=== PATIENT | female | born 1975 | race Caucasian/White ===

== ENCOUNTER 2023-11-03 07:28 | Outpatient (OUT) | payer OTHER, SELFPAY ==
--- NOTE | 2023-11-03 07:31 | MM_ITS ---
Patient Name: BHAVANA DEE MR#: [id number] : 1975 Exam Date: 11/03/2023 Ordering Doctor: DR Dayami Ann M.D. RADIOLOGY REPORT PROCEDURE: MM TOMOSYNTHESIS SCREENING BI COMPARISON: MG MAMM SCREEN 3D KELY CAD, 07/17/2022. MG MAMM SCREEN 3D KELY CAD, 06/24/2021. MG MAMM SCREEN KELY W CAD, 06/19/2020. MG MAMM KELY SCRN W CAD DIG, 05/07/2015. INDICATIONS: Screening Calculator Name NCI Breast Cancer Risk Assessment Tool 5 Year Breast Cancer Risk 1.30% Lifetime Breast Cancer Risk 12.30% Personal Breast Cancer No Personal Ovarian Cancer No Treatments None Family Cancers None LOCATION: [facility] BREAST COMPOSITION: The breasts are heterogeneously dense,which may obscure small masses. FINDINGS: DIAGNOSTIC CATEGORY 1--NEGATIVE. RIGHT BREAST: No significant suspicious finding. No significant change has occurred. LEFT BREAST: No significant suspicious finding. No significant change has occurred. RECOMMENDATIONS: ROUTINE MAMMOGRAM AND CLINICAL EVALUATION IN 12 MONTHS. PLEASE NOTE: A NORMAL MAMMOGRAM DOES NOT EXCLUDE THE POSSIBILITY OF BREAST CANCER. A CLINICALLY SUSPICIOUS PALPABLE LUMP SHOULD BE BIOPSIED. Dictated by: Patricio Aleman M.D. on 11/04/2023 at 14:26 Approved by: Patricio Aleman M.D. on 11/04/2023 at 14:29
== END 2023-11-03 07:29 | disposition home or self-care (01) ==
LOC: MAMMO 07:28
PROVIDERS: PCP Family Medicine; Visit Provider Family Medicine
DX: Z12.31 Encounter for screening mammogram for malignant neoplasm of breast (principal)
CPT/HCPCS: 77063; 77067

== ENCOUNTER 2024-07-23 12:38 | Emergency (ER) | payer OTHER, SELFPAY ==
[2024-07-23 12:46] VITALS: BP 120/71; PULSE 80; TEMP 37.1; O2SAT 97; BMI 28.7
--- OUTSIDE RECORDS SUMMARY | 2024-07-23 13:14 | XMS_ITS | CCD ---
Author Organization [facility] Care Team Providers Care Senior Benefits Manager Name Role Phone Tena Maxwell Unavailable DOMINIQUE ., DR MCCOY Admitting Unavailabl e KARASIK ., DR MCCOY Attending Unavailclifford JOSHI, DR DAYAMI Franks Primary Care Unavailable KARASIK ., DR MCCOY Consulting Unavailabl e ALLAN, DR PATRICIO Peacock Consulting Unavailable KARASIK ., DR MCCOY Admitting Unavailabl e KARASIK ., DR MCCOY Attending Ben JOSHI, DR DAYAMI Franks Primary Care Unavailable KARASIK ., DR MCCOY Consulting Unavailabl e ALLAN, DR PATRICIO Peacock Consulting Unavailable KARASIK ., DR MCCOY Admitting Unavailabl e KARASIK ., DR MCCOY Attending Unavailclifford JOSHI, DR DAYAMI Franks Primary Care Unavailable KARASIK ., DR MCCOY Consulting Dayami Bernal Unavailable THOM KIRAN Attending Unavailable MD Dayami Joshi Primary Care Provider DO Katie Haque Attending Provider [phone] Katie Haque Attending Unavailable Katie Haque Admitting Unavailable Dayami Joshi Primary Care Unavailable Allergies Allergy Classification Reported Allergen(s) Allergy Type Date of Onset Reaction(s) Facility Penicillins (antibiotic) (1 source) Penicillins Drug Allergy 11-29-19 Comment:Hives, eyes buldge, diarrhea, throat swelling, N&V [facility] Sulfonamides (antibiotic) (1 source) Sulfonamides (Antibiotic) Drug Allergy 12-01-19 heart racing and hives [facility] (1 source) Penicillin V Drug Allergy diarrhea [facility] Other (1 source) sulfaSALAzine Drug Allergy heart racing [facility] Other (2 sources) Penicillin Drug Allergy diarrhea [facility] Other (2 sources) Sulfacetamide Drug Allergy Unknown [facility] Other (2 sources) Substance with penicillin structure and antibacterial mechanism of action (substance) Drug allergy Comment:Hives, eyes buldge, diarrhea, throat swelling, N&V [facility] Other (2 sources) Substance with sulfonamide structure and antibacterial mechanism of action (substance) Drug allergy heart racing [facility] Other (2 sources) patient allergy list reviewed by nurse or physicia Propensity to adverse reactions 09-07-19 Comment:Done [facility] Other (2 sources) Allergies Reconciled Propensity to adverse reactions Unknown [facility] Other (2 sources) Penicillins; Translations: [Penicillins] Allergy to substance 12-13-19 Comment:Hives, eyes buldge, diarrhea, throat swelling, N&V [facility] (2 sources) Sulfonamides (Antibiotic); Translations: [Sulfa (Sulfonamide Antibiotics)] Allergy to substance 12-13-19 heart racing and [facility] Medications Current Medications Medication Drug Class(es) Dates Sig (Normalized) Sig (Original) Antiarthritic Combination No.2 (Glucosamine-Chondroi tin) 900 mg tablet (1 source) Start: 12-13-2023 take 1 tablet by mouth once daily Antiarthritic Combination No.2 (Glucosamine-Chondro itin) 900 mg tablet Active MG PO Daily December 13, 2023 12:00am cholecalciferol 0.05 mg oral capsule (1 source) Vitamin D Start: 12-13-2023 take 50 ug by mouth once daily Cholecalciferol (Vitamin D3) Active 50 MCG PO Daily December 13, 2023 12:00am Digestive Enzymes (1 source) Start: 12-13-2023 take 1 capsule by mouth once daily at mealtime Digestive Enzymes Active 1 CAP PO Daily December 13, 2023 12:00am administer with food; swallow whole; do not crush/chew/dissolve/ break/cut lactobacillus acidophilus [id number] unt oral capsule (1 source) Start: 12-13-2023 take 10 capsules by mouth once daily Lactobacillus Acidophilus (Probacap) 10 billion cell capsule Active 100 MMU CELLS PO Daily December 13, 2023 12:00am levothyroxine sodium 0.088 mg oral tablet (7 sources) l-Thyroxine Start: 11-29-2023 Levothyroxine Active 1 TAB PO Daily November 29, 2023 12:00am FreeTextSig: TAKE 1 TABLET DAILY Orally Once a day; Note: Source Status: Refill; Refills: 3; Qty: 90 Tablet; Provider: Marissa Franks Start: 07-07-2021 take 1 tablet by shilpi once daily Levothyroxine Sodium 88MCG Levothyroxine Sodium 88MCG, 1 (one) Tablet daily # 0, 07/07/2021, No Refill. Active Oral daily for 0 *Pick strength-form from [employer] for eRX* Jul, Active Levothyroxine So dium 88 MCG TAKE 1 TABLET DAILY Orally Once a day for 90 days Active Synthroid Active metroNIDAZOLE (2 sources) Nitroimidazole Antimicrobial Start: 12-01-2023 Metronidazole Active 1 APPLIC TOPICAL Daily 60 December 01, 2023 12:00am Multivitamins (2 sources) Start: 11-25-2021 Multivitamins Multivitamins( Oral 1 daily ) Active -Hx Entry Oral daily for 0 *Reorder from [employer] for eRx and Interaction Alerts* Oct, Active Probiotic-10 (2 sources) Start: 11-25-2021 Probiotic-10 Probiotic-10( Oral 1 Daily ) Active -Hx Entry Oral Daily for 0 *Pick strength-form from [employer] for eRX* Oct, Active Problems Active Problems Problem Classification Problem Date Documented Date Episodic/Chronic Blindness and vision defects (2 sources) Visual disturbance; Translations: [Unspecified visual disturbance] Episodic Conditions associated with dizziness or vertigo (2 sources) Dizziness and giddiness; Translations: [Dizziness and giddiness] Episodic Headache; including migraine (2 sources) Menstrual status migrainosus; Translations: [Menstrual migraine, not intractable, with status migrainosus] Chronic Immunizations and screening for infectious disease (8 sources) Contact with and (suspected) exposure to other viral communicable diseases; Translations: [Encounter for screening for human papillomavirus (HPV)] Onset: 03-05-2021 Resolved: 03-05-2021 Episodic Malaise and fatigue (2 sources) Fatigue; Translations: [Other fatigue] Episodic Menopausal disorders (2 sources) Menopause present; Translations: [Menopausal and female climacteric states] Chronic Nutritional deficiencies (2 sources) Vitamin D deficiency; Translations: [Vitamin D deficiency, unspecified] Chronic Other aftercare (2 sources) History and physical examination, follow-up; Translations: [Encounter for follow-up examination after completed treatment for conditions other than malignant neoplasm] Episodic Other connective tissue disease (2 sources) Neuralgia; Translations: [Neuralgia and neuritis, unspecified] Episodic Other connective tissue disease (2 sources) Spasm; Translations: [Other muscle spasm] Episodic Other female genital disorders (2 sources) Mucous polyp of cervix; Translations: [Polyp of cervix uteri] Episodic Other inflammatory condition of skin (3 sources) Perioral dermatitis; Translations: [Perioral dermatitis] 12-01-2023 Chronic Other inflammatory condition of skin (1 source) Perioral dermatitis; Translations: [Rosacea] 12-01-2023 Chronic Other nutritional; endocrine; and metabolic disorders (2 sources) Obese class I; Translations: [Body mass index (BMI) 32.0-32.9, adult] Chronic Other screening for suspected conditions (not mental disorders or infectious disease) (13 sources) Encounter for screening mammogram for malignant neoplasm of breast; Translations: [Encounter for screening for malignant neoplasm of cervix] Onset: 07-07-2022 Episodic Other upper respiratory infections (5 sources) Acute upper respiratory infection, unspecified; Translations: [Acute maxillary sinusitis] Onset: 09-06-2018 Resolved: 03-05-2021 Episodic Spondylosis; intervertebral disc disorders; other back problems (4 sources) Thoracic and lumbosacral neuritis; Translations: [Thoracic or lumbosacral neuritis or radiculitis, unspecified] Onset: 07-18-2018 Episodic Thyroid disorders (2 sources) Hypothyroidism; Translations: [Hypothyroidism, unspecified] Chronic Past or Other Problems Problem Classification Problem Date Documented Da te Episodic/Chronic Cancer of cervix (2 sources) Atypical squamous cells of undetermined significance on cervical Papanicolaou smear; Translations: [Atypical squamous cells of undetermined significance on cytologic smear of cervix (ASC-US)] Resolved: 06-04-2017 Episodic Menstrual disorders (2 sources) Irregular periods; Translations: [Irregular menstruation, unspecified] Onset: 07-18-2018 Resolved: 06-13-2019 Chronic Nonspecific chest pain (2 sources) Chest pain; Translations: [Other chest pain] Resolved: 11-20-2021 Episodic Other female genital disorders (2 sources) Abnormal uterine bleeding; Translations: [Abnormal uterine and vaginal bleeding, unspecified] Resolved: 06-19-2020 Chronic Other female genital disorders (4 sources) Polyp of cervix uteri; Translations: [POLYP OF CERVIX UTERI] Onset: 12-04-2021 Episodic Other nutritional; endocrine; and metabolic disorders (2 sources) Body mass index 25-29 - overweight; Translations: [Body mass index (BMI) 27.0-27.9, adult] Resolved: 06-17-2020 Episodic Other upper respiratory infections (2 sources) Chronic sinusitis; Translations: [Chronic sinusitis, unspecified] Resolved: 06-17-2020 Chronic Results Test Name Value Interpretation Reference Range Facil ity HCG ( test) IA.rapi d Ql (U)Ordered By: Katie Haque on 12-22-2023 HCG ( test) Ql (U) Negative [facility] HCG,Urineon 12-22-2023 Beta HCG ( test) Ql (U) Negative Normal [facility] Comment on above: Result Comment: PERFORMED BY: [place] [address] PATHOLOGIST CUP MACHINE OPERATOR LORI VEGA M.D. Performed By: #### U HCG #### [address] Shahzad 12-22-2023 L Specimen: [id number] Received: 12/22/23 Status: LINCOLN Johnson Num: [id number] Spec Type: Surgical Subm Dr: Katie Haque DO Tissues: A Colon Biopsy (DESC POLYPS) Procedures: HE/2, Gross/Micro L4 Age/ Patient Sex Location Account Attending Physician Bhavana Dee 48/F [id number] Katie Haque DO SPEC NUM: [id number] RECD: 12/22/23 STATUS: LINCOLN ALEX NUM: [id number] NAY: 12/22/23 DR: Katie Haque DO ENTERED: 12/22/[address]: SPEC TYPE: Surgical DEPT: S ORDERED: HE/2, Gross/Micro L4 ORDERED: HE/2, Gross/Micro L4 Pathological Diagnosis Colon, descending polyp (endoscopic polypectomy/biopsy): Fragments of tubular adenoma Clinical Information Screening Gross Description Received in formalin labeled with the patient's name, date of and descending polyp are 2 gottlieb polypoid tissue fragments measuring 0.4 x 0.4 x 0.1 cm and 0.3 x 0.3 x 0.1 cm, entirely submitted in A1. CPT Codes 41726 ---- ---- Specimen: [id number] Received: 12/22/23 Status: LINCOLN Alex Num: [id number] Spec Type: Surgical Subm Dr: Katie Haque DO Tissues: A Colon Biopsy (DESC POLYPS) Procedures: HE/2, Gross/Micro L4 ---- Patient: Bhavana Dee [id number] (Continued) ---- Signed (signature on file) Karan Ziegler Jr., MD 12/23/23 1540 Normal [facility] MG MAMM SCREEN 3D KELY CADon 07-17-2022 MG MAMM SCREEN 3D KELY CAD Patient: BHAVANA DEE Exam Date: 07/17/2022 : 1975 Gender:F Ordering : DR DARIUS FOX . Admission #: [id number] Family : Order #: [id number] CLICK HERE TO VIEW EXAM RADIOLOGY REPORT PROCEDURE: MAMMOGRAM SCREENING 3D BILATERAL CAD COMPARISON: MG MAMM SCREEN 3D KELY CAD, 06/24/2021. MG MAMM SCREEN KELY W CAD, 06/19/2020. MG MAMM SCREEN KELY W CAD, 06/12/2019. MG MAMM KELY SCRN W CAD DIG, 05/07/2015. INDICATIONS: Screening mammography Calculator Name NCI Breast Cancer Risk Assessment Tool 5 Year Breast Cancer Risk 1.20% Lifetime Breast Cancer Risk 12.70% Personal Breast Cancer No Personal Ovarian Cancer No Treatments None Family Cancers None LOCATION: [facility] BREAST COMPOSITION: Heterogeneously dense,which may obscure small masses. FINDINGS: DIAGNOSTIC CATEGORY 1--NEGATIVE. RIGHT BREAST: No significant suspicious finding. No significant change has occurred. LEFT BREAST: No significant suspicious finding. No significant change has occurred. RECOMMENDATIONS: ROUTINE MAMMOGRAM AND CLINICAL EVALUATION IN 12 MONTHS. PLEASE NOTE: A NORMAL MAMMOGRAM DOES NOT EXCLUDE THE POSSIBILITY OF BREAST CANCER. A CLINICALLY SUSPICIOUS PALPABLE LUMP SHOULD BE BIOPSIED. Dictated by: Patricio Aleman M.D. on 07/17/2022 at 11:48 Approved by: Patricio Aleman M.D. on 07/17/2022 at 11:51 Normal [facility] PAP ACOG PANEL 2: 30 to 65on 07-17-2022 . . Normal [facility] Comment on above: Result Comment: Performed at: WB Performed By: #### [id number] #### [facility] [address] [address] [address] Laurel Sheldon Age Gdln ACOG Testing 30-65 Normal [facility] Comment on above: Performed By: #### [id number] #### [facility] [address] [address] [address] Laurel Sheldon DIAGNOSIS: Comment Normal [facility] Comment on above: Result Comment: NEGATIVE FOR INTRAEPITHE LIAL LESION OR MALIGNANCY. CELLULAR CHANGES ASSOCIATED WITH INFLAMMATION ARE PRESENT. THIS SPECIMEN WAS RESCREENED PART OF OUR SURVEY CHIEF PROGRAM. Performed at: WB Performed By: #### [id number] #### [facility] [address] [address] [address] Laurel Sheldon HPV Aptima Positive Abnormal Negative [facility] Comment on above: Result Comment: This nucleic acid amplif ication test detects fourteen high-risk HPV types (16,18,31,33,35,39,45,51,52,56,58,59,66,68) without differentiation. Performed at: =G Performed By: #### [id number] #### [facility] [address] [place] [address] Dr. Laurel Sheldon HPV Genotype 16 Negative Normal Negative [facility] Comment on above: Performed By: #### [id number] #### [facility] [address] [place] [address] Dr. Laurel Sheldon HPV Genotype 18,45 Negative Normal Negative [facility] Comment on above: Performed By: #### [id number] #### [facility] [address] [address] [address] Laurel Sheldon HPV Genotype Reflex Comment Normal [facility] Comment on above: Result Comment: Criteria met, see HPV Ge notype results. Performed at: WB Performed By: #### [id number] #### [facility] [address] [place] [address] Dr. Laurel Sheldon Methodology: Comment Normal [facility] Comment on above: Result Comment: This liquid based ThinPr ep(R) pap test was screened with the use of an image guided system. Performed at: WB Performed By: #### [id number] #### [facility] [address] [address] [address] Laurel Sheldon Note: Comment Normal [facility] Comment on above: Result Comment: The Pap smear is a scree tatiana test designed to aid in the detection of premalignant and malignant conditions of the uterine cervix. It is not a diagnostic procedure and should not be used as the sole means of detecting cervical cancer. Both false-positive and false-negative reports do occur. . Performed at: WB Performed By: #### [id number] #### [facility] [address] [place] [address] Dr. Laurel Sheldon Performed by: Comment Normal [facility] Comment on above: Result Comment: Dary [employer] nologist (ASCP) Performed at: WB Performed By: #### [id number] #### [facility] [address] [address] [address] Laurel Sheldon QC reviewed by: Comment Normal [facility] Comment on above: Result Comment: Sophy Teixeira [employer] nologist Performed at: WB Performed By: #### [id number] #### [facility] [address] [place] [address] Dr. Laurel Sheldon Specimen adequacy: Comment Normal [facility] Comment on above: Result Comment: Satisfactory for evaluat ion. Endocervical and/or squamous metaplastic cells (endocervical component) are present. Performed at: WB Performed By: #### [id number] #### [facility] [address] [address] [address] Laurel hSeldon US PELVIS AND TRANSVAGon US PELVIS AND TRANSVAG EXAMINATION: US PELVIS AND TRANSVAG HISTORY: Polyp of cervix COMPARISON: No relevant comparison available. TECHNIQUE: Transabdominal and transvaginal sonographic examination. FINDINGS: UTERUS: Normal size and appearance. Uterus size: 9.2 x 4.1 x 5.6 cm ENDOMETRIUM: Normal homogeneous appearance. Endometrial thickness: 10 mm RIGHT OVARY: Contains a 2.7 cm benign-appearing cyst. Duplex Doppler demonstrates normal waveform and flow; resistive index 0.7. Ovary size: 3.6 x 2.8 x 2.3 cm LEFT OVARY: Normal size and appearance. Duplex Doppler demonstrates normal waveform and flow; resistive index 0.5. Ovary size: 2.6 x 1.1 x 2.6 cm CUL-DE-SAC: Unremarkable. No significant free fluid. BLADDER: Unremarkable. OTHER: None. IMPRESSION: 1. Unremarkable uterus. No appreciable polyp within cervix. Electronically authenticated by: PATRICIO ALEMAN Date: 2021-12-04 17:45 Normal [facility] Research Journalist Quick Testingon 2020 Result Negative [facility] Other Vital Signs Date Time Vital Sign Value Performing Clinician Facility 12-22-2023 14:06-0400 Diastolic blood pressure 71 mm[Hg] MD Dayami Joshi Work Phone: [facility] 12-22-2023 14:06-0400 Heart rate 81 /min MD Dayami Joshi Work Phone: [facility] 12-22-2023 14:06-0400 Respiratory rate 16 /min MD Dayami Joshi Work Phone: [facility] 12-22-2023 14:06-0400 SaO2% (BldA) [Mass fraction] 98 % MD Dayami Joshi Work Phone: [facility] 12-22-2023 14:06-0400 Systolic blood pressure 99 mm[Hg] MD Dayami Joshi Work Phone: [facility] 12-22-2023 12:29-0400 Body height 170.18 cm MD Dayami Joshi Work Phone: [facility] 12-22-2023 12:29-0400 Body weight 81.64 kg MD Dayami Joshi Work Phone: [facility] 12-01-2023 08:33-0400 Body height 170.18 cm [facility] 12-01-2023 08:33-0400 Body mass index (BMI) [Ratio] 29.1 kg/m2 [facility] 12-01-2023 08:33-0400 Body weight 84.36 kg [facility] 12-01-2023 08:33-0400 Diastolic blood pressure 72 mm[Hg] [facility] 12-01-2023 08:33-0400 Heart rate 75 /min [facility] 12-01-2023 08:33-0400 SaO2% (BldA) [Mass fraction] 97 % [facility] 12-01-2023 08:33-0400 Systolic blood pressure 118 mm[Hg] [facility] 03-05-2021 12:15-0400 Body height 170.18 cm Tena Verduzcomond Other [employer] [facility] [employer] Other 03-05-2021 12:15-0400 Body mass index (BMI) [Ratio] 28.5 kg/m2 Tena Alissa Other [facility] Other 03-05-2021 12:15-0400 Body temperature 98.3 [degF] Tena Verduzcomond Other [facility] Other 03-05-2021 12:15-0400 Body weight 82.56 kg Tena Verduzcomond Other [facility] Other 03-05-2021 12:15-0400 Respiratory rate 18 /min Tena Verduzcomond Other [facility] Other 03-05-2021 12:15-0400 SaO2% (BldA) [Mass fraction] 98 % Tena Alissa Other [facility] Other Encounters Encounter Date Encounter Type Care Provider Facility Start: 12-22-2023 Non-patient / Non-visit MD Dayami Joshi Work Phone: [facility] Gastroenterology Work Phone: Start: 12-22-2023 End: 12-22-2023 Admission to same day surgery center MD Dayami Joshi Work Phone: [facility] Work Phone: Start: 12-22-2023 End: 12-22-2023 ambulatory MD Dayami Joshi Work Phone: [facility] Work Phone: Start: 12-01-2023 End: 12-01-2023 ambulatory [facility] Work Phone: Start: 12-01-2023 End: 12-01-2023 Patient encounter procedure [facility] Work Phone: Start: 11-18-2023 End: 11-18-2023 ambulatory THOM KIRAN Not Available Start: 04-02-2023 End: 04-02-2023 ambulatory Dayami Joshi Other [employer] Other Start: 04-02-2023 Telephone encounter Dayami Joshi [facility] Start: 03-29-2023 End: 03-29-2023 ambulatory Dayami Joshi Other [facility] Other Start: 03-29-2023 Telephone encounter Dayami Joshi [facility] Start: 07-17-2022 End: 07-18-[address] DARIUS FOX . Facility:[facility] Start: 07-07-2022 End: 07-07-[address] DARIUS FOX . Facility:[facility] Start: 12-04-2021 End: 12-05-[address] DARIUS FOX . Facility:[facility] Start: 11-20-2021 End: 11-20-2021 Gynecological examination normal Dayami Joshi Other [facility] Other Start: 03-05-2021 (URG) Urgent Care Visit Tena Maxwell [facility] Urgent Care Jacek Start: 11-26-2020 Adult health examination Dayami Joshi Other [facility] Other Start: 06-13-2019 End: 06-13-2019 History of abnormal cervical Papanicolaou smear Dayami Joshi Other [facility] Other Procedures Date Procedure Procedure Detail Performing Clinician Start: 12-22-2023 Screening colonoscopy M D Dayami Joshi Work Phone: Start: 07-18-2018 End: 06-13-2019 General examination of patient Dayami Joshi Other Start: 10-25-2008 visit Dayami Joshi Other End: 11-20-2021 Screening for malignant neoplasm of breast Dayami Joshi Other End: 06-13-2019 Screening for malignant neoplasm of breast Dayami Joshi Other End: 06-13-2019 Screening for malignant neoplasm of cervix Dayami Joshi Other Plan of Treatment Date Care Activity Detail Author Start: 12-22-2023 [facility] Start: 12-01-2023 Patient referral [facility] Work Phone: Patient Education Colon Polypect terell (DC) Know your [facility] Work Phone: Patient referral [facility] Work Phone: Immunizations Immunization Date Immunization Notes Care Provider Fa gale 02-24-2019 diphtheria, tetanus toxoids and acellular pertussis vaccine, unspecified formulation Dayami Joshi Other [facility] Payers Date Payer Category Payer Self-pay 2019 Private Health Insurance [id number] 1975 Unknown [id number] [id number] 1975 Unknown [id number] 1975 Unknown [id number] [id number] [id number] 1975 Unknown [id number] [id number] 1960 Unknown [id number] [facility] [id number] Unknown [facility] [id number] Unknown [id number] Social History Date Type Detail Facility Sex Assigned At [employer] Other Start: 12-01-2023 End: 12-22-2023 Tobacco smoking status NHIS Never smoked tobacco (finding) [facility] Start: 1975 Sex Assigned At Female F [facility] Goals Date Patient Goal Desired Activity /State History and physical note 12-22-2023 Note Date & Type Note Facility 12-22-2023 History and physical note Note Date/Time December 22, 2023 12:06pm [facility] [address] [place] [address] Gastroenterology H&P Signed Patient: Bhavana Dee MR#: [id number] : 1975 Acct:[id number] Age/Sex: 48 / F Adm Date: 4 Loc: Room: Type: [facility] Attending Dr: Katie Haque DO Copies to: DO Dayami Givens MD~ Date of Service: 12/22/2023 HISTORY & PHYSICAL: Patient's history with special attention to the cardiovascular, pulmonary systems and the current problem was reviewed with the patient immediately prior to the procedure. Present medications and doses reviewed in the EMR. Allergies and pertinent laboratory tests were also reviewedat this time in the EMR. The physical examination, as below, was then performed. Indication, assessment and HPI: 48-year-old female who presents for screening colonoscopy. She denies any GI complaints. No prior colonoscopy. Family history of GI malignancy? No PHYSICAL EXAMINATION General appearance: cooperative, NAD Skin: No jaundice, no rash or lesions Head: NCAT Eyes: Anicteric Neck: Supple Lungs: Normal respiratory effort, no use of accessory muscles Abdomen: Soft, nondistended Neuro: No focal deficits, Ox3. REVIEW OF SYSTEMS Constitutional: Denies malaise, fevers Cardiovascular: Denies chest pain, palpitations Respiratory: Denies shortness of breath, wheezing Gastrointestinal: As per HPI Genitourinary: Denies dysuria, polyuria Musculoskeletal: Denies joint swelling, joint stiffness Neurological: Denies confusion, numbness, tingling Endocrine: Denies fatigue Written informed consent obtained from the patient. Risks (including but not limited to perforation, infection, bloating, bleeding, need for emergent surgeryand loss of life), benefits and alternatives explained and questions answered. The patient verbalized understanding. Based on history patient is an appropriate candidate for the procedure. Katie Haque DO Documented By: Katie Haque DO 12/22/23 1202 Signed By: <Electronically signed by Katie Haque DO> 12/22/23 1314 [facility] Work Phone: Procedure note 12-22-2023 Note Date & Type Note Facility 12-22-2023 Procedure note [facility] Evaluation note 03-05-2021 Note Date & Type Note Facility 03-05-2021 Evaluation note Encounter Date Diagnosis Assessment Notes Feb, Contact with and (suspected) exposure to other viral communicable diseases (ICD-10 - Z20.828) Feb, Viral upper respiratory illness (ICD-10 - J06.9) Drink plenty fluids, get plenty of rest. Take Tylenol or Motrin as needed for aches pains or fevers. Use Mucinex or Sudafed for your sinus congestion. Continue home medications as prescribed. Follow-up with your family physician if no improvement in 2 to 3 days per Feb, Other Additional time spent conducting pre-visit phone call, screening for symptoms, instructions on social distancing, application and removal of PPE, and cleaning of examination room, equipment and supplies was preformed. Patient education given for testing methodology and results. Patient care instructions given in writting by [facility] document. [employer] Other Evaluation note Note Date & Type Note Facility Evaluation note No Information [employer] Other Evaluation note Note Date & Type Note Facility Evaluation note Diagnosis Onset Date Screening for colon cancer a [facility] Work Phone: Evaluation note Note Date & Type Note Facility Evaluation note Diagnosis Onset Date Perioral dermatitis acute Screening for colon cancer a [facility] Work Phone: History general Narrative - Reported Note Date & Type Note Facility History general Narrative - Reported Type Medical History Hypothyroidism Surgical History wisdom teeth extract Surgical History x 2 Hospitalization History see above [employer] Other History general Narrative - Reported Note Date & Type Note Facility History general Narrative - Reported Type Medical History Hypothyroidism Surgical History Problem Title : Cesa rean Delivery, Problem Status : Active, Surgical History Problem Title : Cesa rean Section - 2, Problem Status : Active, 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: No previous surgery, Problem Status : Inactive, Surgical History Problem Title : past surgical history reviewed, Problem Description : past surgical history reviewed, Problem Comment : reviewed - no changes required, Problem Status : Inactive, Surgical History Problem Title : surg ical procedures, hx of, Problem Description : surgical procedures, hx of, Problem Comment : x 2 [place] Teeth Removed , Problem Status : Inactive, Hospitalization History see above [employer] Other Hospital Discharge instructions Note Date & Type Note Facility Hospital Discharge instructions Ambulatory OrdersReferral to Gastroenterology Time Frame: 12/01/23, Location: [facility] Work Phone: Summary Purpose Family History No Family History Records Found Relationship Condition Age at Onset Recorded Date/T yuval father Malignant neoplasm Unknown mother Hypothyroidism Unknown Relationship Condition Age at Onset Recorded Date/T yuval father Malignant neoplasm Unknown Malignant neoplasm of urinary bladder Unk nown mother Hypothyroidism Unknown Advance Directives No Advanced Directives Records Found Advance Directive Response Recorded Date/ Time Advance Directives No November 30 4 8:30am Chief Complaint and Reason for Visit Chief Complaint dry skin around mout h Reason for Visit Screening for colon cancer Chief Complaint dry skin around mout h Screening Screening Reason for Visit Perioral dermatitis Screening for colon cancer Additional Source Comments REASON FOR VISIT (unrecogniz ed section and content) #10 RAMO BRADLEY NOS E X7 DAYSrefillrefill INFORMATION SOURCE (unrecogn ized section and content) DATE CREATED AUTHOR 07/23/2022 [facility] DATE CREATED AUTHOR AUTHOR'S ORGANIZ ATION 11/20/2023 [facility] EPIC DATE CREATED AUTHOR AUTHOR'S ORGANIZ ATION 01/04/2024 [facility] Care Teams (unrecognized sec tion and content) Team Status: Active Member Role Status Dates Dayami Joshi MD Primary Care Provider Active Team Status: Inactive Member Role Status Dates Dayami Joshi MD Primary Care Provide r, Attending Provider Active Start: December 01, 2023 End: December 01, 2023 Team Status: Inactive Member Role Status Dates Dayami Joshi MD Primary Care Provider Active Start: December 22, 2023 End: December 22, 2023 Katie Hqaue DO Attending Provider Active St art: December 22, 2023 End: December 22, 2023 Team Status: Active Member Role Status Dates Dayami Joshi MD Primary Care Provider Active Start: December 22, 2023 Katie Haque DO Attending Provider, Other Provider Active Start: December 22, 2023 Goals (unrecognized section and content) Goals may be documented in a n alternate section FOR RECORDS PERTAINING TO PATIENTS WHO ARE OR HAVE BEEN ENROLLED IN A CHEMICAL DEPENDENCY/SUBSTANCEABUSE PROGRAM, SOME INFORMATION MAY BE OMITTED. This clinical summary was aggregated from multiple sources. Caution should be exercised in using it in the provision of clinical care. This summary normalizes information from multiple sources, and as a consequence, information in this document may materially change the coding, format and clinical context of patient data. In addition, data may be omitted in some cases. CLINICAL DECISIONS SHOULD BE BASED ON THE PRIMARY CLINICAL RECORDS. [facility]. provides no warranty or guarantee of the accuracy or completeness of information in this document.
--- NOTE | 2024-07-23 14:30 | ED.LOWEXI1 ---
HPI HPI - Extremity Injury (Lower) General Chief Complaint: Extremity Injury, Lower Stated Complaint: R FOOT PAIN Time Seen by Provider: 07/23/24 13:02 Source: patient Mode of arrival: Wheelchair History of Present Illness HPI Narrative: cc = right foot pain after dancing Patient states she was dancing around 6 or 630 last night when she suddenly felt a pop to the outside of the right foot. She had increased pain this morning when she woke up. She took ibuprofen around 1030 this morning. No prior injury or surgery to this foot. Related Data Allergies Allergy/AdvReac Type Severity Reaction Status Date / Time Penicillins Allergy Severe Anaphylaxis Verified 07/23/24 12:50 Sulfa (Sulfonamide Allergy Severe Rash Verified 07/23/24 12:50 Antibiotics) Opioid HPI Opioid Management Most Recent Pain and Opioid Data: No Data to Display PFSH PFSH Social History Little interest or pleasure in doing things: not at all Feeling down, depressed, or hopeless: not at all Exam Narrative Exam Narrative: Vital signs reviewed and nurse's notes. The patient is not hypoxic. General: Alert, no acute distress, patient resting comfortably Skin: warm, intact, no pallor noted Head: Normocephalic, atraumatic Eye: Normal conjunctiva Respiratory: No acute distress Musculoskeletal: No evidence of deformity to the R foot. There is a small amount of swelling and some ecchymosis along the proximal and mid 4th and 5th metatarsal. No erythema or warmth noted. DP and PT pulses are intact 2+. Normal sensation, normal capillary refill less than 2 seconds. There is no cyanosis or mottling noted. The patient has tenderness to the right 4th and 5th metatarsal. The patient was able to dorsiflex and plantar flex although with pain. Patient was able to extend leg off the cart without difficulty. No tenderness noted to the midfoot, ankle or proximal fibular area. There is no pain with calcaneal squeeze, achilles tendon is intact and no defect is palpated. Neurological: alert and orient x4, normal sensory and motor observed. Psychiatric: Cooperative Constitutional Vital Signs, click to edit/add: Last Vital Signs Temp 98.7 F 07/23/24 12:46 Pulse 80 07/23/24 12:46 Resp 18 07/23/24 12:46 BP 120/71 07/23/24 12:46 Pulse Ox 97 07/23/24 12:46 O2 Del Method Room Air 07/23/24 12:46 Course Vital Signs Vital signs: Vital Signs Temperature 98.7 F 07/23/24 12:46 Pulse Rate 80 07/23/24 12:46 Respiratory Rate 18 07/23/24 12:46 Blood Pressure 120/71 07/23/24 12:46 Pulse Oximetry 97 07/23/24 12:46 Oxygen Delivery Method Room Air 07/23/24 12:46 Temperature 98.7 F 07/23/24 12:46 Pulse Rate 80 07/23/24 12:46 Respiratory Rate 18 07/23/24 12:46 Blood Pressure 120/71 07/23/24 12:46 Pulse Oximetry 97 07/23/24 12:46 Oxygen Delivery Method Room Air 07/23/24 12:46 MDM - Extremity Injury (Lower) MDM Narrative Medical decision making narrative: The patient was sent for x-rays of the right foot. She has acute fracture of the base of the right fifth metatarsal with involvement of the base of the right fourth as well . Patient was informed of results and findings. Emergency department nurse applied a cam boot to the patient's right foot/lower leg and she was discharged home with referral to Dr. Henderson. She was instructed to take Tylenol Motrin for pain. She said that she had significant pain with any attempt at weightbearing so she was given crutches for support. 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 Imaging Data xr foot: My impression: Acute comminuted fracture involving the base of the right fifth metatarsal. There is partial involvement of the right fourth metatarsal base as well Discharge Plan Discharge Chief Complaint: Extremity Injury, Lower Clinical Impression: Closed displaced fracture of fifth metatarsal bone of right foot, Closed displaced fracture of fourth metatarsal bone of right foot Patient Disposition: Home, Self-Care Time of Disposition Decision: 14:44 Print Language: Malay Instructions: Foot Fracture in Adults (ED) Referrals: Mike Henderson DPM [Physician] - As needed
--- NOTE | 2024-07-23 14:35 | PC.NURSE ---
Pain and slight swelling to right foot, skin pink and warm and pulses present.
== END 2024-07-23 15:14 | disposition home or self-care (01) ==
PROVIDERS: Emergency Provider Emergency Medicine; PCP Family Medicine
DX: S92.351A Displaced fracture of fifth metatarsal bone, right foot, initial encounter for closed fracture (principal); S92.341A Displaced fracture of fourth metatarsal bone, right foot, initial encounter for closed fracture; Y93.41 Activity, dancing
CPT/HCPCS: 73630; 99283

== ENCOUNTER 2024-08-07 08:49 | Outpatient (OUT) | payer OTHER, SELFPAY ==
--- NOTE | 2024-08-07 | XR_ITS ---
The [address] [address] Patient Name: BHAVANA DEE MRN: [id number] date: 1975 Sex: F Assigned Patient Location: Current Patient Location: Accession/Order Number: [id number] Exam Date: 08/07/2024 12:13 Report Date: 08/07/2024 12:18 At the request of: MARI CERRATO MD Procedure: XR foot RT min 3V RIGHT FOOT - 3 views CLINICAL DATA: Follow-up fifth metatarsal fracture. Continued foot pain. COMPARISON: None AP, lateral and oblique views were obtained in a cast which somewhat obscures fine bone detail. A transverse, mildly comminuted fracture at the proximal metadiaphysis of the fifth metatarsal is again seen. There is some resorption at the fracture cleft. No significant interval callus formation is identified. The questioned nondisplaced fracture at the base of the fourth metatarsal on the oblique view on the prior is still possible though not as well seen due to the cast artifact.. There is no additional suspected fracture or dislocation. There are no significant soft tissue abnormalities. XR/XR foot RT min 3V IMPRESSION: STABLE PROXIMAL FIFTH METATARSAL FRACTURE. CONTINUED EQUIVOCAL NONDISPLACED FRACTURE AT THE BASE OF THE FOURTH METATARSAL, SEEN ONLY ON THE OBLIQUE VIEW. Impression dictated by: Clarita Richards M.D.08/07/2024 12:18 PM Dictation Location: [place] [address] Electronically authenticated by: [id number] Y Date: 08/07/2024 12:18
--- OUTSIDE RECORDS SUMMARY | 2024-08-07 09:11 | XMS_ITS | CCD ---
Author Organization [facility] Care Team Providers Care Scouring Machine Tender Name Role Phone Tena Maxwell Unavailable DOMINIQUE [...] Care Provider DO Katie Haque Attending Provider Katie Haque Attending Unavailable Katie Haque Admitting Unavailable Dayami Joshi Primary Care Unavailable Allergies Allergy Classification Reported Allergen(s) Allergy Type Date of Onset Reaction(s) Facility Penicillins (antibiotic) (1 source) Penicillins Drug Allergy 11-29-19 Comment:Hives, eyes buldge, diarrhea, throat swelling, N&V [facility] Sulfonamides (antibiotic) (1 source) Sulfonamides (Antibiotic) Drug Allergy 12-01-19 heart racing and hives [facility] (1 source) Penicillin V Drug Allergy diarrhea [facility] Other (1 source) sulfaSALAzine Drug Allergy heart racing [facility] Other (2 sources) Penicillin Drug Allergy diarrhea [facility] Other (2 sources) Sulfacetamide Drug Allergy Unknown [facility] Other (2 sources) Substance with penicillin structure and antibacterial mechanism of action (substance) Drug allergy Comment:Hives, eyes buldge, diarrhea, throat swelling, N&V [facility] Other (2 sources) Substance with sulfonamide structure and antibacterial mechanism of action (substance) Drug allergy heart racing [facility] Other (2 sources) patient allergy list reviewed by nurse or physicia Propensity to adverse reactions 09-07-19 Comment:Done [facility] Other (2 sources) Allergies Reconciled Propensity to adverse reactions Unknown [facility] Other (2 sources) Penicillins; Translations: [Penicillins] Allergy to substance 12-13-19 Comment:Hives, eyes buldge, diarrhea, throat swelling, N&V [facility] (2 sources) Sulfonamides (Antibiotic); Translations: [Sulfa (Sulfonamide Antibiotics)] Allergy to substance 12-13-19 heart racing and [facility] Medications Current Medications Medication Drug Class(es) Dates [...] whole; do not crush/chew/dissolve/ break/cut lactobacillus acidophilus [id number] unt oral capsule (1 source) Start: 12-13-2023 [...] Oral daily for 0 *Pick strength-form from X2IMPACT for eRX* Jul, Active Levothyroxine So dium 88 MCG TAKE 1 TABLET DAILY Orally Once a day for 90 days Active Synthroid Active metroNIDAZOLE (2 sources) Nitroimidazole Antimicrobial Start: 12-01-2023 Metronidazole Active 1 APPLIC TOPICAL Daily 60 December 01, 2023 12:00am Multivitamins (2 sources) Start: 11-25-2021 Multivitamins Multivitamins( Oral 1 daily ) Active -Hx Entry Oral daily for 0 *Reorder from X2IMPACT for eRx and Interaction Alerts* Oct, Active Probiotic-10 (2 sources) Start: 11-25-2021 Probiotic-10 Probiotic-10( Oral 1 Daily ) Active -Hx Entry Oral Daily for 0 *Pick strength-form from X2IMPACT for eRX* Oct, Active Problems Active Problems [...] 12-22-2023 HCG ( test) Ql (U) Negative [facility] HCG,Urineon 12-22-2023 Beta HCG ( test) Ql (U) Negative Normal [facility] Comment on above: Result Comment: PERFORMED BY: [place] [address] PATHOLOGIST [employer] BROKER LORI VEGA M.D. Performed By: #### U HCG #### [address] Shahzad 12-22-2023 L Specimen: [id number] Received: 12/22/23 Status: LINCOLN Johnson Num: [id number] Spec Type: Surgical Subm Dr: Katie Haque DO Tissues: A Colon Biopsy (DESC POLYPS) Procedures: HE/2, Gross/Micro L4 Age/ Patient Sex Location Account Attending Physician Bhavana Dee 48/F [id number] Katie Haque DO SPEC NUM: [id number] RECD: 12/22/23 STATUS: LINCOLN ALEX NUM: [id number] NAY: 12/22/23 DR: Katie Haque DO ENTERED: 12/22/[address]: SPEC TYPE: Surgical DEPT: S ORDERED: [...] cm, entirely submitted in A1. CPT Codes 37289 ---- ---- Specimen: [id number] Received: 12/22/23 Status: LINCOLN Alex Num: [id number] Spec Type: Surgical Subm Dr: Katie Haque DO Tissues: A Colon Biopsy (DESC POLYPS) Procedures: HE/2, Gross/Micro L4 ---- Patient: Bhavana Dee [id number] (Continued) ---- Signed (signature on file) Karan Ziegler Jr., MD 12/23/23 1540 Normal [facility] MG MAMM SCREEN 3D KELY CADon 07-17-2022 MG MAMM SCREEN 3D KELY CAD Patient: BHAVANA DEE Exam Date: 07/17/2022 : 1975 Gender:F Ordering : DR DARIUS FOX . Admission #: [id number] Family : Order #: [id number] CLICK HERE TO VIEW EXAM RADIOLOGY REPORT [...] Treatments None Family Cancers None LOCATION: [facility] BREAST COMPOSITION: Heterogeneously dense,which may obscure small [...] Aleman M.D. on 07/17/2022 at 11:51 Normal [facility] PAP ACOG PANEL 2: 30 to 65on 07-17-2022 . . Normal [facility] Comment on above: Result Comment: Performed at: WB Performed By: #### [id number] #### [facility] [address] [address] [address] Laurel Sheldon Age Gdln ACOG Testing 30-65 Normal [facility] Comment on above: Performed By: #### [id number] #### [facility] [address] [address] [address] Laurel Sheldon DIAGNOSIS: Comment Normal [facility] Comment on above: Result Comment: NEGATIVE FOR INTRAEPITHE LIAL LESION OR MALIGNANCY. CELLULAR CHANGES ASSOCIATED WITH INFLAMMATION ARE PRESENT. THIS SPECIMEN WAS RESCREENED PART OF OUR LICENSED MORTGAGE LOAN OFFICER PROGRAM. Performed at: WB Performed By: #### [id number] #### [facility] [address] [address] [address] Laurel Sheldon HPV Aptima Positive Abnormal Negative [facility] Comment on above: Result Comment: This nucleic acid amplif ication test detects fourteen high-risk HPV types (16,18,31,33,35,39,45,51,52,56,58,59,66,68) without differentiation. Performed at: =G Performed By: #### [id number] #### [facility] [address] [place] [address] Dr. Laurel Sheldon HPV Genotype 16 Negative Normal Negative [facility] Comment on above: Performed By: #### [id number] #### [facility] [address] [place] [address] Dr. Laurel Sheldon HPV Genotype 18,45 Negative Normal Negative [facility] Comment on above: Performed By: #### [id number] #### [facility] [address] [address] [address] Laurel Sheldon HPV Genotype Reflex Comment Normal [facility] Comment on above: Result Comment: Criteria met, see HPV Ge notype results. Performed at: WB Performed By: #### [id number] #### [facility] [address] [place] [address] Dr. Laurel Sheldon Methodology: Comment Normal [facility] Comment on above: Result Comment: This liquid based ThinPr ep(R) pap test was screened with the use of an image guided system. Performed at: WB Performed By: #### [id number] #### [facility] [address] [address] [address] Laurel Sheldon Note: Comment Normal [facility] Comment on above: Result Comment: The Pap smear is a scree tatiana test designed to aid in the detection of premalignant and malignant conditions of the uterine cervix. It is not a diagnostic procedure and should not be used as the sole means of detecting cervical cancer. Both false-positive and false-negative reports do occur. . Performed at: WB Performed By: #### [id number] #### [facility] [address] [place] [address] Dr. Laurel Sheldon Performed by: Comment Normal [facility] Comment on above: Result Comment: Dary [employer] nologist (ASCP) Performed at: WB Performed By: #### [id number] #### [facility] [address] [address] [address] Laurel Sheldon QC reviewed by: Comment Normal [facility] Comment on above: Result Comment: Sophy Teixeira [employer] nologist Performed at: WB Performed By: #### [id number] #### [facility] [address] [place] [address] Dr. Laurel Sheldon Specimen adequacy: Comment Normal [facility] Comment on above: Result Comment: Satisfactory for evaluat ion. Endocervical and/or squamous metaplastic cells (endocervical component) are present. Performed at: WB Performed By: #### [id number] #### [facility] [address] [address] [address] Laurel Sheldon US PELVIS AND TRANSVAGon US PELVIS AND [...] PATRICIO ALEMAN Date: 2021-12-04 17:45 Normal [facility] Dynamic Recreation Quick Testingon 2020 Result Negative [facility] Other Vital Signs Date Time Vital Sign Value Performing Clinician Facility 12-22-2023 14:06-0400 Diastolic blood pressure 71 mm[Hg] MD Dayami Joshi Work Phone: [facility] 12-22-2023 14:06-0400 Heart rate 81 /min MD Dayami Joshi Work Phone: [facility] 12-22-2023 14:06-0400 Respiratory rate 16 /min MD Dayami Joshi Work Phone: [facility] 12-22-2023 14:06-0400 SaO2% (BldA) [Mass fraction] 98 % MD Dayami Joshi Work Phone: [facility] 12-22-2023 14:06-0400 Systolic blood pressure 99 mm[Hg] MD Dayami Joshi Work Phone: [facility] 12-22-2023 12:29-0400 Body height 170.18 cm MD Dayami Joshi Work Phone: [facility] 12-22-2023 12:29-0400 Body weight 81.64 kg MD Dayami Joshi Work Phone: [facility] 12-01-2023 08:33-0400 Body height 170.18 cm [facility] 12-01-2023 08:33-0400 Body mass index (BMI) [Ratio] 29.1 kg/m2 [facility] 12-01-2023 08:33-0400 Body weight 84.36 kg [facility] 12-01-2023 08:33-0400 Diastolic blood pressure 72 mm[Hg] [facility] 12-01-2023 08:33-0400 Heart rate 75 /min [facility] 12-01-2023 08:33-0400 SaO2% (BldA) [Mass fraction] 97 % [facility] 12-01-2023 08:33-0400 Systolic blood pressure 118 mm[Hg] [facility] 03-05-2021 12:15-0400 Body height 170.18 cm Tena Verduzcomond Other Jajah [facility] Other 03-05-2021 12:15-0400 Body mass index (BMI) [Ratio] 28.5 kg/m2 Tena Alissa Other [facility] Other 03-05-2021 12:15-0400 Body temperature 98.3 [degF] Tena Verduzcomond Other [facility] Other 03-05-2021 12:15-0400 Body weight 82.56 kg Tena Verduzcomond Other [facility] Other 03-05-2021 12:15-0400 Respiratory rate 18 /min Tena Verduzcomond Other [facility] Other 03-05-2021 12:15-0400 SaO2% (BldA) [Mass fraction] 98 % Tena Alissa Other [facility] Other Encounters Encounter Date Encounter Type Care Provider Facility Start: 12-22-2023 Non-patient / Non-visit MD Dayami Joshi Work Phone: [facility] Gastroenterology Work Phone: Start: 12-22-2023 End: 12-22-2023 Admission to same day surgery center MD Dayami Joshi Work Phone: [facility] Work Phone: Start: 12-22-2023 End: 12-22-2023 ambulatory MD Dayami Joshi Work Phone: [facility] Work Phone: Start: 12-01-2023 End: 12-01-[address] [facility] Work Phone: Start: 12-01-2023 End: 12-01-2023 Patient encounter procedure [facility] Work Phone: Start: 11-18-2023 End: 11-18-2023 ambulatory THOM KIRAN Not Available Start: 04-02-2023 End: 04-02-2023 ambulatory Dayami Joshi Other [facility] Other Start: 04-02-2023 Telephone encounter [facility] Start: 03-29-2023 End: 03-29-2023 ambulatory Dayami Joshi Other [facility] Other Start: 03-29-2023 Telephone encounter [facility] Start: 07-17-2022 End: 07-18-[address] DARIUS FOX . Facility:[facility] Start: 07-07-2022 End: 07-07-[address] DARIUS FOX . Facility:[facility] Start: 12-04-2021 End: 12-05-[address] DARIUS FOX . Facility:[facility] Start: 11-20-2021 End: 11-20-2021 Gynecological examination normal Dayami Joshi Other [facility] Other Start: 03-05-2021 (URG) Urgent Care Visit Tena Maxwell [facility] Urgent Care Jacek Start: 11-26-2020 Adult health examination Dayami Joshi Other [facility] Other Start: 06-13-2019 End: 06-13-2019 History of abnormal cervical Papanicolaou smear Dayami Joshi Other [facility] Other Procedures Date Procedure Procedure Detail Performing [...] Date Care Activity Detail Author Start: 12-22-2023 [facility] Start: 12-01-2023 Patient referral [facility] Work Phone: Patient Education Colon Polypect terell (DC) Know your [facility] Work Phone: Patient referral [facility] Work Phone: Immunizations Immunization Date Immunization Notes Care Provider Fa gale 02-24-2019 diphtheria, tetanus toxoids and acellular pertussis vaccine, unspecified formulation Dayami Joshi Other [facility] Payers Date Payer Category Payer Self-pay 2019 Private Health Insurance [id number] 1975 Unknown [id number] 1975 Unknown [id number] 1975 Unknown [id number] 2.16.84 [id number] 1975 Unknown [id number] [id number] [id number] 1960 Unknown [id number] [place] [facility] [id number] Unknown [facility] [id number] Unknown [id number] Social History Date Type Detail Facility Sex Assigned At [facility] Other Start: 12-01-2023 End: 12-22-2023 Tobacco smoking status NHIS Never smoked tobacco (finding) [facility] Start: 1975 Sex Assigned At Female F [facility] Goals Date Patient Goal Desired Activity /State History and physical note 12-22-2023 Note Date & Type Note Facility 12-22-2023 History and physical note Note Date/Time December 22, 2023 12:06pm [facility] [address] [place] [address] Gastroenterology H&P Signed Patient: Bhavana Dee MR#: [id number] : 1975 Acct:[id number] Age/Sex: 48 / F Adm Date: 4 Loc: Room: Type: [facility] Attending Dr: Katie Haque DO Copies to: [...] signed by Katie Haque DO> 12/22/23 1314 [facility] Work Phone: Procedure note 12-22-2023 Note Date & Type Note Facility 12-22-2023 Procedure note [facility] Evaluation note 03-05-2021 Note Date & [...] Patient care instructions given in writting by [facility] Care At Home document. [facility] Other Evaluation note Note Date & Type Note Facility Evaluation note No Information [facility] Other Evaluation note Note Date & Type Note Facility Evaluation note Diagnosis Onset Date Screening for colon cancer a [facility] Work Phone: Evaluation note Note Date & Type Note Facility Evaluation note Diagnosis Onset Date Perioral dermatitis acute Screening for colon cancer a [facility] Work Phone: History general Narrative - Reported Note Date & Type Note Facility History general Narrative - Reported Type Medical History Hypothyroidism Surgical History wisdom teeth extract Surgical History x 2 Hospitalization History see above [facility] Other History general Narrative - Reported Note Date & Type Note Facility History general Narrative - Reported Type Medical History Hypothyroidism Surgical History Problem Title : Cesa rean Delivery, Problem Status : Active, Surgical History Problem Title : Cesa rean Section - 2, Problem Status : Active, 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 SURGERIES: No previous surgery, Problem Status : Inactive, Surgical History Problem Title : past surgical history reviewed, Problem Description : past surgical history reviewed, Problem Comment : reviewed - no changes required, Problem Status : Inactive, Surgical History Problem Title : surg ical procedures, hx of, Problem Description : surgical procedures, hx of, Problem Comment : x 2 [place] Teeth Removed , Problem Status : Inactive, Hospitalization History see above [facility] Other Hospital Discharge instructions Note Date & Type Note Facility Hospital Discharge instructions Ambulatory OrdersReferral to Gastroenterology Time Frame: 12/01/23, Location: [facility] Work Phone: Summary Purpose Family History No [...] and content) DATE CREATED AUTHOR 07/23/2022 [facility] DATE CREATED AUTHOR AUTHOR'S ORGANIZ ATION 11/20/2023 [facility] EPIC DATE CREATED AUTHOR AUTHOR'S ORGANIZ ATION 01/04/2024 [facility] Care Teams (unrecognized sec [...] 22, 2023 End: December 22, 2023 Katie Haque DO Attending Provider Active St art: December [...] BE BASED ON THE PRIMARY CLINICAL RECORDS. [employer] [facility]. provides no warranty or guarantee of the accuracy or completeness of information in this document.
== END 2024-08-07 08:50 | disposition home or self-care (01) ==
LOC: EC 08:49
PROVIDERS: PCP Family Medicine; Visit Provider Orthopaedic Surgery
DX: S92.344A Nondisplaced fracture of fourth metatarsal bone, right foot, initial encounter for closed fracture (principal); S92.901A Unspecified fracture of right foot, initial encounter for closed fracture
CPT/HCPCS: 73630

== ENCOUNTER 2024-09-04 11:04 | Outpatient (OUT) | payer OTHER, SELFPAY ==
--- NOTE | 2024-09-04 | XR_ITS ---
[address] [address] Patient Name: BHAVANA DEE MRN: [id number] date: 1975 Sex: F Assigned Patient Location: Current Patient Location: Accession/Order Number: [id number] Exam Date: 09/04/2024 13:18 Report Date: 09/04/2024 13:19 At the request of: MARI CERRATO MD Procedure: XR foot RT min 3V 3 views right foot plain film COMPARISON:08/07/2024 HISTORY: Follow-up assessment of nondisplaced fracture of the fourth and fifth metatarsals ACUTE FINDINGS: Subtle interval healing. Stable alignment. DEGENERATIVE CHANGE: Unremarkable SOFT TISSUE FINDINGS: Unremarkable JOINT EFFUSION: None POSTOP CHANGES: None BONE MINERALIZATION: Adequate XR/XR foot RT min 3V IMPRESSION: Healing fractures with stable alignment Impression dictated by: Omer Watt M.D.09/04/2024 1:19 PM Dictation Location: [place] [address] Electronically authenticated by: [id number] Y Date: 09/04/2024 13:19
== END 2024-09-04 11:05 | disposition home or self-care (01) ==
LOC: EC 11:04
PROVIDERS: PCP Family Medicine; Visit Provider Orthopaedic Surgery
DX: S92.354D Nondisplaced fracture of fifth metatarsal bone, right foot, subsequent encounter for fracture with routine healing (principal); S92.344D Nondisplaced fracture of fourth metatarsal bone, right foot, subsequent encounter for fracture with routine healing
CPT/HCPCS: 73630

== ENCOUNTER 2024-11-03 07:54 | Outpatient (OUT) | payer OTHER, SELFPAY ==
--- OUTSIDE RECORDS SUMMARY | 2024-08-09 12:33 | XMS_ITS ---
Author Organization [facility] Address [address] [place] [address] Care Team Providers Care Contact Center Associate Name Role Phone Patricio Tran Unavailable [phone] Encounters Encounter Location Date Provider Diagnosis [facility] [address] [place] [address] 08/09/2024 Patricio Tran Plan Of Treatment Next Appt Details Provider Name:Patricio Parker and, 11/13/2024 09:10:00 AM, [address], [address], [place], [address], Progress Notes * BRUCE DEEOB:1975 (48 yo F)Acc No.[id number]:08/09/2024 Patient: BHAVANA WOODARD :1975 A ge:48 Y S ex:Female Address:[facility] [place], [address] Subjective: * Chief Complaints: * * Medical History: * Surgical History: * Hospitalization/Major Diagno stic Procedure: * Medications: Objective: * Vitals: * Physical Examination: Assessment: Plan: * Treatment: * Procedure Codes: * true * Date: Generated for Printi ng/Faxing/eTransmitting on: 0 11/03/2024 07:58 AM EDT
--- NOTE | 2024-11-03 07:57 | MM_ITS ---
Patient Name: BHAVANA DEE MR#: [id number] : 1975 Exam Date: 11/03/2024 Ordering Doctor: DR DEYSI JOSHI M.D. RADIOLOGY REPORT PROCEDURE: MM TOMOSYNTHESIS SCREENING BI COMPARISON: MM TOMOSYNTHESIS SCREENING BI, 11/03/2023. MG MAMM SCREEN 3D KELY CAD, 07/17/2022. MG MAMM SCREEN 3D KELY CAD, 06/24/2021. MG MAMM KELY SCRN W CAD DIG, 05/07/2015. INDICATIONS: Screening Calculator Name NCI Breast Cancer Risk Assessment Tool 5 Year Breast Cancer Risk 1.30% Lifetime Breast Cancer Risk 12.10% Personal Breast Cancer No Personal Ovarian Cancer No Treatments None Family Cancers None LOCATION: [facility] BREAST COMPOSITION: The breasts are heterogeneously dense,which may obscure small masses. FINDINGS: RIGHT BREAST: No significant suspicious finding. Benign-appearing lymph nodes are present. LEFT BREAST: No significant suspicious finding. Benign-appearing lymph nodes are present. DIAGNOSTIC CATEGORY 1--NEGATIVE. RECOMMENDATIONS: ROUTINE MAMMOGRAM AND CLINICAL EVALUATION IN 12 MONTHS. PLEASE NOTE: A NORMAL MAMMOGRAM DOES NOT EXCLUDE THE POSSIBILITY OF BREAST CANCER. A CLINICALLY SUSPICIOUS PALPABLE LUMP SHOULD BE BIOPSIED. Dictated by: Leo Viramontes MD on 11/03/2024 at 10:07 Approved by: Leo Viramontes MD on 11/03/2024 at 10:08
--- OUTSIDE RECORDS SUMMARY | 2024-11-03 07:58 | XMS_ITS | Clinical Summary ---
Author Organization [facility] Address [address] [place] [address] Care Team Providers Care Alarm Mechanic Name Role Phone Dayami Ann MD Primary Care Provider [phone] Allergies Active Allergy Reactions Criticality Noted Date Comments Penicillins Anxiety,Dermatitis,D iar octavio,Hives,Itching,Rash ,Shortness of breath,Swelling High 11/18/2023 Other Reaction(s): Unknown Sulfa Antibiotics 11/18/2023 Other Reaction(s): Unknown Medications levothyroxine (Synthroid, Levoxyl) 88 MCG tablet 1 (one) time each day at the same time Active Family History Medical History Relation Name Comments Cancer Father Italo Thyroid disease Mother Alyssa Breast cancer Mother's Sister Luz Elena Migraines Mother's Sister Luz Elena Thyroid disease Sister Alix Relation Name Status Comments Father Italo Alive Mother Alyssa Alive Mother's Sister Luz Elena Sister Alix Social History Tobacco Use Types Packs/Day Years Used Date Smoking Tobacco: Never Smokeless Tobacco: Never Tobacco Cessation:Counseling Given: Not Answered Alcohol Use Standard Drinks/Week Comments Never 0 (1 standard drink = 0.6 oz pur e alcohol) Comments Unknown Sex and Gender Information Value Date Recorded Sex Assigned at Female 11/15/2023 5:41 PM EDT Legal Sex Female 7:18 PM EDT Gender Identity Female 11/15/2023 5:41 PM EDT Sexual Orientation Straight 11/15/2023 5: 41 PM EDT Last Filed Vital Signs Vital Sign Reading Time Taken Comments Blood Pressure 118/70 11/18/2023 11:33 AM EDT Pulse - - Temperature - - Respiratory Rate - - Oxygen Saturation - - Inhaled Oxygen Concentration - - Weight 83.9 kg (185 lb) 11/18/2023 11:33 AM EDT Height 162.6 cm (5' 4 ) 07/07/2022 12:00 PM EST Body Mass Index 31.76 07/07/2022 12:00 PM EST Plan of Treatment Upcoming Encounters Date Type Department Care Team (Late st Contact Info) Description 11/22/2024 11:00 AM EDT Office Visit [facility] [address] UNIQUE D [address] [phone] Anna Verma DO [address] [phone] Insurance [facility] Care Teams Alarm Mechanic Relationship Specialty Start Date End Date Dayami Ann MD PCP - General Family Medicine 11/18/23
--- OUTSIDE RECORDS SUMMARY | 2024-11-03 07:59 | XMS_ITS | Patient Health Record ---
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 Name Role Phone Patricio Tran Unavailable [phone] Nancy Parra Unavailable [phone] Allergies Allergen (clinical drug ingredient) Drug/Non Drug Allergy documented on EMR Reaction Allergy Type Onset Date Status PENICILLIN (uncoded) Unknown Allergy Active SULFA (uncoded) Unknown Allergy Acti ve Results Component Value Reference Range Notes SCC- FOOT 3 VIEW RIGHT 65691 Reviewed date:10/09/2024 01:23:00 PM Interpretation: Performing Lab: Notes/Report: SCC- FOOT 3 VIEW RIGHT 19949 Reviewed date:08/10/2024 11:16:27 AM Interpretation: Performing Lab: Notes/Report: SMP - Work Slip Reviewed date:08/10/2024 11:36:24 AM Interpretation: Performing Lab: Notes/Report: Reason For Referral No Information Medications Medication SIG (Take, Route, Frequency, Duration) Notes Start Date End Date Status Synthroid Active Social History Tobacco Use: Social History Observation Description Date Details (start date - stop date) Never Smoker NA - NA AUDIT-C (Standard) Question Answer Notes Did you have a drink containing alcohol in the p ast year? No Points 0 Interpretation Negative Tobacco Control (Standard) Question Answer Notes Tobacco use: Nonsmoker Problems Problem Type SNOMED Code ICD Code Onset Dates Problem Status W/U Status Risk Notes Problem 649874017 Nondisplaced fracture of fourth metatarsal bone, right foot, subsequent encounter for fracture with routine healing (S92.344D) Active confirmed Problem 98545457 Nondisplaced fracture of fifth metatarsal bone, right foot, initial encounter for closed fracture (S92.354A) Active confirmed Problem 401295719 Nondisplaced fracture of fifth metatarsal bone, right foot, subsequent encounter for fracture with routine healing (S92.354D) Active confirmed Problem [id number] Closed nondisplaced fracture of fourth metatarsal bone of right foot, initial encounter (S92.344A) Active confirmed Vital Signs Height 5'7 in 10/02/2024 Weight 178 lbs 10/02/2024 BMI 27.88 10/02/2024 Encounters Encounter Location Date Provider Diagnosis [facility] [address] [place] [address] 10/02/2024 Patricio Tran Nondisplaced fractur e of fourth metatarsal bone, right foot, subsequent encounter for fracture with routine healing S92.344D and Nondisplaced fracture of fifth metatarsal bone, right foot, subsequent encounter for fracture with routine healing S92.354D [facility] [address] [place] [address] 07/24/2024 Patricio Tran Closed nondisplaced fracture of fourth metatarsal bone of right foot, initial encounter S92.344A and Nondisplaced fracture of fifth metatarsal bone, right foot, initial encounter for closed fracture S92.354A [facility] [address] [facility] [place] [address] 08/07/2024 Patricio Tran Nondisplaced fractur e of fourth metatarsal bone, right foot, subsequent encounter for fracture with routine healing S92.344D and Nondisplaced fracture of fifth metatarsal bone, right foot, subsequent encounter for fracture with routine healing S92.354D [facility] [address] [facility] [place] [address] 09/04/2024 Nancy Parra Nondisplaced fractur e of fifth metatarsal bone, right foot, initial encounter for closed fracture S92.354A and Closed nondisplaced fracture of fourth metatarsal bone of right foot, initial encounter S92.344A [facility] [address] [place] [address] 07/31/2024 Patricio Tran [facility] [address] [place] [address] 08/09/2024 Patricio Tran Assessments Encounter Date Diagnosis (ICD Code) Assessment Notes Treatment Notes Treatment Clinical Notes Section Notes 07/24/2024 Nondisplaced fracture of fifth metatarsal bone, right foot, initial encounter for closed fracture (ICD-10 - S92.354A) 07/24/2024 Closed nondisplaced fracture of fourth metatarsal bone of right foot, initial encounter (ICD-10 - S92.344A) 08/07/2024 Nondisplaced fracture of fourth metatarsal bone, right foot, subsequent encounter for fracture with routine healing (ICD-10 - S92.344D) 08/07/2024 Nondisplaced fracture of fifth metatarsal bone, right foot, subsequent encounter for fracture with routine healing (ICD-10 - S92.354D) 09/04/2024 Nondisplaced fracture of fifth metatarsal bone, right foot, initial encounter for closed fracture (ICD-10 - S92.354A) 09/04/2024 Closed nondisplaced fracture of fourth metatarsal bone of right foot, initial encounter (ICD-10 - S92.344A) 10/02/2024 Nondisplaced fracture of fourth metatarsal bone, right foot, subsequent encounter for fracture with routine healing (ICD-10 - S92.344D) 10/02/2024 Nondisplaced fracture of fifth metatarsal bone, right foot, subsequent encounter for fracture with routine healing (ICD-10 - S92.354D) 10/02/2024 Other Patient is doing well with her right 4th and 5th metatarsal fractures. She will transition from nonweightbearing to weightbearing in the boot gradually over the course the next 1 to 2 weeks and then transition to a regular shoe. She will follow-up in 6 weeks to repeat x-rays and reassess her progress. Import medication 07/24/2024 Other For her right foot Beyer fracture and fourth metatarsal base fracture I recommended a short leg cast. Placed today in clinic. She will follow-up in 2 weeks to repeat x-rays in the cast and reassess her progress. Import medication 08/07/2024 Other We will continue with the cast and nonweightbearing. She will follow-up in 4 weeks to remove the cast and repeat x-rays. We will likely place her in a boot at that time. Import medication 09/04/2024 Other Today I am arash mariee to place patient in a cam walking boot but discussed with her that she should remain nonweightbearing. We are going to keep her work restrictions given at her last appointment of 4-hour days, seated duty and she is going to try this and see how it goes. She will call if she is not tolerating this and we can write her out of work. We will see her back in 4 weeks to repeat x-rays and reassess her progress. Plan Of Treatment Pending Test Test Name Order Date SCC- FOOT 3 VIEW RIGHT [id number] 09/04/2024 Next Appt Details Provider Name:Patricio Parker and, 11/13/2024 09:10:00 AM, [address] [place] [address], [address], [place], [address], Insurance Providers Payer Name Payer Address Payer Phone Subscriber Number Group Number Insured Name Patient Relationship to Insured Coverage Start Date Coverage End Date [facility] [address] [address] [place] [id number] CARLIE DEE Spouse - patient is the spouse of the insured Medical (General) History Medical History History ICD Code Hypothyroidism Surgical History Surgery Date(Month/Year) C section 10/2004, 08/2008
[2024-11-03 09:49] LABS: Thyroid Stimulating Hormone 3.745 uIU/mL (0.358-3.740)
[2024-11-03 10:25] LABS: Free T4 1.21 ng/dL (0.76-1.46)
== END 2024-11-03 07:55 | disposition home or self-care (01) ==
LOC: MAMMO 07:54
PROVIDERS: PCP Family Medicine; Visit Provider Family Medicine
DX: N95.1 Menopausal and female climacteric states (principal); Z12.31 Encounter for screening mammogram for malignant neoplasm of breast; E03.9 Hypothyroidism, unspecified
CPT/HCPCS: 36415; 77063; 77067; 77080; 84439; 84443

== ENCOUNTER 2024-11-28 14:26 | Outpatient (OUT) | payer OTHER, SELFPAY ==
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
== END 2024-11-28 14:27 | disposition home or self-care (01) ==
LOC: RAD 14:26
PROVIDERS: PCP Family Medicine; Visit Provider Family Medicine
DX: M79.671 Pain in right foot (principal); S92.354D Nondisplaced fracture of fifth metatarsal bone, right foot, subsequent encounter for fracture with routine healing
CPT/HCPCS: 73630

== ENCOUNTER 2025-01-30 13:48 | Outpatient (OUT) | payer OTHER, SELFPAY ==
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
== END 2025-01-30 13:49 | disposition home or self-care (01) ==
LOC: MRI 13:48
PROVIDERS: PCP Family Medicine; Visit Provider Nurse Practitioner Adult Health
DX: F07.81 Postconcussional syndrome (principal); R41.89 Other symptoms and signs involving cognitive functions and awareness
CPT/HCPCS: 70551